=== PATIENT | female | born 1980 | race Caucasian/White ===

== ENCOUNTER 2016-07-28 18:18 | Emergency (ER) | payer OTHER ==
[2016-07-28 18:37] VITALS: BP 132/78; PULSE 92; RESP 16; TEMP 98; O2SAT 100
--- NOTE | 2016-07-28 19:57 | ED PDOC ---
HPI: Psych/Substance Abuse Time Seen by Provider: 07/28/16 18:35 Chief Complaint (Nursing): Psychiatric Evaluation Chief Complaint (Provider): Psychiatric Evaluation History Per: Patient History/Exam Limitations: no limitations Additional Complaint(s): Lety Ames is a 36 y/o female presenting to the ER on 07/28/2016 with depression and suicidal ideation. Patient states her suicidal thoughts have been getting worse due to constant verbal arguments between her and her family in [place]. Upon arrival to the ED, she states the only thing that is preventing her from suicide is her 17 month old son at home. In addition upon arrival, she says it was not her idea to come in for evaluation; it was her 's. However, she believes it may be a good idea to seek help. She also states a similar episode has had happened a few years ago. Past Medical History Reviewed: Historical Data, Nursing Documentation, Vital Signs Vital Signs: Last Vital Signs Temp 98.0 F 07/28/16 18:35 Pulse 92 H 07/28/16 18:35 Resp 16 07/28/16 18:35 BP 132/78 07/28/16 18:35 Pulse Ox 100 07/28/16 18:35 - Medical History PMH: No Chronic Diseases - Surgical History Surgical History: No Surg Hx - Family History Family History: States: Unknown Family Hx - Allergies Allergies/Adverse Reactions: Allergies Allergy/AdvReac Type Severity Reaction Status Date / Time No Known Allergies Allergy Verified 07/28/16 18:34 Review of Systems ROS Statement: Except As Marked, All Systems Reviewed And Found Negative Constitutional: Negative for: Fever Psych: Positive for: Depression, Suicidal ideation Physical Exam - Reviewed Nursing Documentation Reviewed: Yes Vital Signs Reviewed: Yes - Physical Exam Appears: Positive for: Non-toxic, No Acute Distress Head Exam: Positive for: ATRAUMATIC, NORMOCEPHALIC Skin: Positive for: Normal Color Eye Exam: Positive for: Normal appearance Neck: Positive for: Normal, Painless ROM, Supple Cardiovascular/Chest: Positive for: Regular Rate, Rhythm. Negative for: Murmur Respiratory: Positive for: Normal Breath Sounds. Negative for: Respiratory Distress Extremity: Positive for: Normal ROM. Negative for: Deformity Neurologic/Psych: Positive for: Alert, Oriented. Negative for: Motor/Sensory Deficits - ECG O2 Sat by Pulse Oximetry: 100 Medical Decision Making Medical Decision Makin:35 Initial Impression- Depression & Suicidal Ideation 19:45 Pt was evaluated by crisis. After evaluation, pt states she feels better but does not admission because she wants to be with her son at home. Documented by Shayy Wilcox, acting as a scribe for Praveena Lopez PA-C All medical record entries made by the Scribe were at my direction and personally dictated by me. I have reviewed the chart and agree that the record accurately reflects my personal performance of the history, physical exam, medical decision making, and the department course for this patient. I have also personally directed, reviewed, and agree with the discharge instructions and disposition. Disposition - Clinical Impression Clinical Impression: Depression (emotion) - Patient ED Disposition Is Patient to be Admitted: No Counseled Patient/Family Regarding: Diagnosis, Need For Followup - Disposition Referrals: [facility] [Outside] [facility] [Outside] Disposition: Routine/Home Disposition Time: 20:22 Condition: GOOD Instructions: Depression (ED)
== END 2016-07-28 20:25 | disposition home or self-care (01) ==
LOC: H.ER 18:18
DX: F33.9 Major depressive disorder, recurrent, unspecified (principal)